=== PATIENT | female | born 1985 | race Caucasian/White ===

== ENCOUNTER 2024-05-03 05:29 | Emergency (ER) | payer BC ==
[~2024-05-03] VITALS: Ht 152.4 cm; Wt 45.4 kg
[2024-05-03 05:31] VITALS: O2SAT 99
[2024-05-03] MEDS ORDERED: VENL75TA4 PO (05:45)
[2024-05-03] MEDS ORDERED: CLON0.5T PO (05:45)
[2024-05-03] MEDS ORDERED: ARIP2TAB3 PO (05:45)
[2024-05-03] MEDS ORDERED: TDAP DIPH,PERTUSS,TET VAC/PF 0.5 ML DISP.SYRIN IM ONE (06:49)
[2024-05-03] MEDS: TDAP DIPH,PERTUSS,TET VAC/PF 0.5 ML DISP.SYRIN IM ONE (06:54)
[2024-05-03] MEDS ORDERED: LIDOCAINE 2%-EPI 1:100,000 20 ML VIAL ONE (07:06)
== END 2024-05-03 07:45 | disposition home or self-care (01) ==
LOC: ER 05:41
DX: S01.01XA Laceration without foreign body of scalp, initial encounter (principal); F32.A Depression, unspecified; Z79.899 Other long term (current) drug therapy; W22.01XA Walked into wall, initial encounter; Y93.89 Activity, other specified; Y92.091 Bathroom in other non-institutional residence as the place of occurrence of the external cause; Y99.8 Other external cause status
CPT/HCPCS: 70450; 72125; 90715; A4606; A4663